=== PATIENT | female | born 1945 | race American Indian/Alaskan Native ===

== ENCOUNTER 2019-03-03 12:33 | Emergency (ER) | payer BC, MEDICARE, OTHER ==
[2019-03-03 12:48] VITALS: BP 129/49; PULSE 72
[2019-03-03 13:37] LABS: ANION GAP 10.9; CHLORIDE,CL 106 mmol/L (101-111); SODIUM,NA 140 mmol/L (135-145)
--- NOTE | 2019-03-03 14:52 | CT ---
EXAMINATION: Head wo Cont SEX: Female AGE: 73 years CLINICAL HISTORY: 73-year-old female injured in a fall. Rule out fracture or intracranial bleed. "Microvascular ischemic changes and atrophy" reported on previous CT exam of the head 06 March 2016. Scan technique: Volume acquisition of data emergency unenhanced CT scan of the head and brain obtained with patient lying supine on the Siemens multislice scanner [facility]. All data archived in the PAC system for storage, reformatting axial/sagittal/coronal planes and study (bone/brain windows). Interpretation: 1. Uniformly thick bony calvarium. Nasal septum deviated left of midline. Symmetric clear pneumatization of the paranasal and mastoid sinuses. 2. No sign of skull fracture, underlying brain contusion or epidural/subdural hematoma. 3. Generalized atrophy pattern symmetric with underlying mirror-image normal ventricular system. No hydrocephalus. 4. Multi-infarct ischemic changes as noted on previous exam to February 2016. 5. No new supratentorial or posterior fossa mass lesion. 6. No sign of acute intracerebral/intraventricular/subarachnoid bleed. CONCLUSION: No skull fracture or signs of acute closed head injury. Atrophy and chronic microvascular ischemic changes.
--- NOTE | 2019-03-03 14:53 | EDM.PDOC ---
ED HPI GENERAL MEDICAL PROBLEM - General Chief Complaint: Trauma Stated Complaint: FELL AND HIT HEAD Time Seen by Provider: 03/03/19 13:01 Source of Information: Reports: Patient, Family, RN, RN Notes Reviewed History Limitations: Reports: No Limitations - History of Present Illness INITIAL COMMENTS - FREE TEXT/NARRATIVE: patient presents to ER with complaint of falling in a chair and hitting her head. Patient is an elderly female but does take aspirin for anticoagulation, therefore trauma code was activated. Patient denies loss of consciousness. Patient states she was at work today was trying to push herself back while seated in a high chair, she and the chair both fell over backwards and she hit her head on a steel box. Patient denies blurred or double vision, N/V, dizziness. Patient denies headache at this time just states her scalp is very tender where she has the hematoma from the fall. Onset: Today, Sudden Head Pain Score (Numeric/FACES): 6 - Related Data Allergies Allergy/AdvReac Type Severity Reaction Status Date / Time No Known Allergies Allergy Verified 09/19/14 06:17 Home Meds: Home Meds Aspirin [Halfprin] 81 mg PO DAILY 09/19/14 [History] Calcium Carbonate/Vitamin D3 [Calcium 500 + Vit D 200 Caplet] 2 tab PO BID 09/19 [History] Lisinopril 5 mg PO DAILY 09/19/14 [History] Multivitamin with Minerals [Multiple Vitamin] 1 tab PO DAILY 09/19/14 [History] Simvastatin [Zocor] 5 mg PO QPM 09/19/14 [History] metFORMIN [Glucophage] 500 mg PO BID 09/19/14 [History] Past Medical History HEENT History: Reports: Impaired Vision Cardiovascular History: Reports: High Cholesterol, Hypertension Respiratory History: Reports: None Genitourinary History: Reports: None 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 Musculoskeletal History: Reports: Other (See Below) Other Musculoskeletal History: fractured left ankle Neurological History: Reports: None Psychiatric History: Reports: None Endocrine/Metabolic History: Reports: Diabetes, Type II Hematologic History: Reports: None Immunologic History: Reports: None Oncologic (Cancer) History: Reports: None Dermatologic History: Reports: None - Infectious Disease History Infectious Disease History: Reports: None - Past Surgical History Head Surgeries/Procedures: Reports: None GI Surgical History: Reports: Appendectomy, Cholecystectomy Social & Family History - Family History Family Medical History: Noncontributory - Tobacco Use Smoking Status *Q: Never Smoker Second Hand Smoke Exposure: No - Caffeine Use Caffeine Use: Reports: Coffee - Recreational Drug Use Recreational Drug Use: No Review of Systems - Review of Systems Review Of Systems: ROS reveals no pertinent complaints other than HPI. ED EXAM, GENERAL - Physical Exam Exam: See Below Exam Limited By: No Limitations General Appearance: Alert, WD/WN, No Apparent Distress Eye Exam: Bilateral Eye: EOMI, Normal Inspection, PERRL (3 brisk) Ears: Normal External Exam, Normal Canal, Hearing Grossly Normal, Normal TMs Nose: Normal Inspection Throat/Mouth: Normal Inspection, Normal Voice, No Airway Compromise Head: Other (scalp hematoma on the top of the head) Neck: Normal Inspection, Supple, Non-Tender, Full Range of Motion Respiratory/Chest: No Respiratory Distress, Lungs Clear, Normal Breath Sounds, No Accessory Muscle Use, Chest Non-Tender Cardiovascular: Normal Peripheral Pulses, Regular Rate, Rhythm, No Edema, No Gallop, No JVD, No Murmur, No Rub Peripheral Pulses: 2+: Radial (L), Radial (R) GI/Abdominal: Normal Bowel Sounds, Soft, Non-Tender (Female) Exam: Deferred Rectal (Female) Exam: Deferred Back Exam: Normal Inspection, Full Range of Motion, NT Extremities: Normal Inspection, Normal Range of Motion, Non-Tender, Normal Capillary Refill, No Pedal Edema Neurological: Alert, Oriented, CN II-XII Intact, Normal Cognition, Normal Gait, Normal Reflexes, No Motor/Sensory Deficits Psychiatric: Normal Affect, Normal Mood Skin Exam: Warm, Dry, Intact, Normal Color, No Rash Lymphatic: No Adenopathy Course - Vital Signs Last Recorded V/S: Last Vital Signs Temp 97.6 F 03/03/19 12:45 Pulse 72 03/03/19 12:45 Resp 18 03/03/19 12:45 BP 129/49 L 03/03/19 12:45 Pulse Ox 98 03/03/19 12:45 Orthostatic Blood Pressure [ 114/62 Standing] Orthostatic Blood Pressure [ 116/55 Sitting] Orthostatic Blood Pressure [ 105/44 Supine] - Orders/Labs/Meds Orders: Active Orders 24 hr Category Date Time Status EKG 12 Lead [EKG Documentation Completion] [RC] URGENT Care 03/03/19 13:08 Active Labs: Laboratory Tests 03/03/19 03/03/19 03/03/19 Range/Units 13:05 13:05 13:05 WBC 5.2 (5.0-10.0) 10^3/uL RBC 4.17 L (4.2-5.4) 10^6/uL Hgb 11.5 L (12.0-16.0) g/dL Hct 35.8 L (37.0-47.0) % MCV 85.9 (80-100) fL MCH 27.6 (27.0-34.0) pg MCHC 32.1 L (33.0-35.0) g/dL Plt Count 240 (150-450) 10^3/uL Neut % (Auto) 61.2 (42.2-75.2) % Lymph % (Auto) 31.3 (20.5-50.1) % Karnes % (Auto) 4.8 (2-8) % Eos % (Auto) 2.3 (1.0-3.0) % Baso % (Auto) 0.4 (0.0-1.0) % PT 9.3 (9.0-12.0) SEC INR 0.9 (0.9-1.2) Sodium 140 (135-145) mmol/L Potassium 3.9 (3.6-5.0) mmol/L Chloride 106 (101-111) mmol/L Carbon Dioxide 27.0 (21.0-31.0) mmol/L Anion Gap 10.9 BUN 12 (7-18) mg/dL Creatinine 0.8 (0.6-1.3) mg/dL Est Cr Clr Drug Dosing 54.08 mL/min Estimated GFR (MDRD) > 60 BUN/Creatinine Ratio 15.00 Glucose 135 H (74-105) mg/dL Calcium 9.0 (8.4-10.2) mg/dl Total Bilirubin 0.9 (0.2-1.0) mg/dL AST 21 (10-42) IU/L ALT 15 (10-60) IU/L Alkaline Phosphatase 99 (42-121) IU/L Troponin I < 0.02 (0.00-0.02) ng/ml Total Protein 6.6 L (6.7-8.2) g/dl Albumin 3.9 (3.2-5.5) g/dl Globulin 2.7 Albumin/Globulin Ratio 1.44 - Radiology Interpretation Free Text/Narrative:: head CT without contrast: No skull fracture or signs of acute closed head injury. Atrophy and chronic microvascular ischemic changes. See radiology report Departure - Departure Time of Disposition: 14:49 Disposition: Home, Self-Care 01 Condition: Fair Clinical Impression: Contusion Qualifiers: Encounter type: initial encounter Contusion area: head Contusion of head detail : scalp Qualified Code(s): S00.03XA - Contusion of scalp, initial encounter Concussion Qualifiers: Encounter type: initial encounter Loss of consciousness presence/duration: without LOC Qualified Code(s): S06.0X0A - Concussion without loss of consciousness, initial encounter - Discharge Information *PRESCRIPTION DRUG MONITORING PROGRAM REVIEWED*: No *COPY OF PRESCRIPTION DRUG MONITORING REPORT IN PATIENT EDWARD: No Instructions: Concussion, Adult, [id number], Post-Concussion Syndrome, Easy- to-Read, Head Injury, Adult, [id number] Forms: ED Department Discharge Additional Instructions: May use Tylenol and/or ibuprofen as directed for headache May use ice to the area as tolerated Rest Follow-up with your primary care provider Return to the ER if you develop nausea, vomiting, blurred or double vision, dizziness - My Orders Last 24 Hours: My Active Orders 03/03/19 13:08 EKG 12 Lead [EKG Documentation Completion] [RC] URGENT - Assessment/Plan Last 24 Hours: My Active Orders 03/03/19 13:08 EKG 12 Lead [EKG Documentation Completion] [RC] URGENT
== END 2019-03-03 15:01 | disposition home or self-care (01) ==
LOC: DL.ED 12:33
DX: S06.0X0A Concussion without loss of consciousness, initial encounter (principal); S00.03XA Contusion of scalp, initial encounter; E78.00 Pure hypercholesterolemia, unspecified; I10 Essential (primary) hypertension; E11.9 Type 2 diabetes mellitus without complications; Z79.82 Long term (current) use of aspirin; Z79.899 Other long term (current) drug therapy; Z79.84 Long term (current) use of oral hypoglycemic drugs; W07.XXXA Fall from chair, initial encounter; W22.8XXA Striking against or struck by other objects, initial encounter
CPT/HCPCS: 36415; 70450; 80053; 84484; 85025; 85610; 93005; 99284-25

== ENCOUNTER 2019-06-25 12:20 | Emergency (ER) | payer OTHER ==
--- NOTE | 2019-06-25 13:19 | CT ---
EXAMINATION: Head wo Cont SEX: Female AGE: 73 years CLINICAL HISTORY: 73-year-old female injured in fall (on aspirin) reported on recent MRI exam 01 June 2019 to have "no acute abnormality". Comparison CT of the head 03 March 2019 ("atrophy and microvascular ischemic changes"). Scan technique: Volume acquisition of data unenhanced CT scan of the head and brain obtained with patient lying supine on the Siemens multislice scanner [facility]. All data archived in the PACS system for storage, reformatting axial/sagittal/coronal planes and study (bone/brain windows). Interpretation: 1. Uniformly thick bony calvarium was symmetric clear pneumatization of the paranasal and mastoid sinuses. No sign of skull fracture, underlying brain contusion or epidural/subdural hematoma. 2. Scattered areas of decreased attenuation frontal periventricular white matter both cerebral hemispheres (right greater than left) characteristic of microvascular multi-infarct ischemic change. Hypertension? Diabetes? 3. No new supratentorial or posterior fossa mass lesion. Physiologic choroid plexus calcifications. No hydrocephalus. 4. No sign of acute intracerebral/intraventricular/subarachnoid bleed (faint basal ganglia calcifications on the left that were evident in retrospect on 03 March 2019 exam i.e. unchanged). 5. No new areas of geographic infarct or signs of encephalomalacia. CONCLUSION: Chronic microvascular ischemic changes. No new evidence intracranial mass, hydrocephalus or bleed.
[2019-06-25 13:24] LABS: SODIUM,NA 141 mmol/L (135-145)
[2019-06-25 13:25] LABS: ANION GAP 10.6; CHLORIDE,CL 108 mmol/L (101-111)
--- NOTE | 2019-06-25 13:29 | CT ---
EXAMINATION: Cervical Spine wo Cont SEX: Female AGE: 73 years CLINICAL HISTORY: 73-year-old female injured in fall. No sign of acute intracranial bleed this patient on aspirin. Scan technique: Volume acquisition of data emergency unenhanced CT scan of the cervical spine obtained with patient lying supine on the Siemens multislice scanner [place], [place]. All data archived in the PACS system for storage, reformatting axial/sagittal/coronal planes and study. INTERPRETATION: Evidence of old (chronic) trauma. 1. Mid cervical kyphosis associated with old hyperflexion compression injuries of the C5, C6, C7 and T1 vertebral bodies. (Hypertrophic buttressing marginal spur or spondylosis) 2. *No sign of prevertebral soft tissue swelling, acute cervical fracture, spondylolisthesis or jump locked facet. 3. Osteopenia. Chronic multilevel cervical disc disease. Calcification ligamentum flavum posteriorly. 4. No congenital abnormality of pathologic skeletal lesion. 5. Hemangioma and compression T1 vertebral body. No spondylolisthesis. T2 vertebral unremarkable.
--- NOTE | 2019-06-25 13:50 | EDM.PDOC ---
ED HPI GENERAL MEDICAL PROBLEM - General Source of Information: Reports: Patient <Sirena Crockett - Last Filed: 06/25/19 14:31> <JavierKailashchad - Last Filed: 06/26/19 09:04> - General Chief Complaint: Trauma Stated Complaint: FELL BACKWARD AND HIT HEAD Time Seen by Provider: 06/25/19 12:35 - History of Present Illness INITIAL COMMENTS - FREE TEXT/NARRATIVE: Alyse presented to the ED after falling backward and hitting her head. She was taking a family picture and went backwards to get a better picture and she tripped over her grandson, who was sitting behind her. She (Sirena Crockett) This incident happed about 30 minutes prior to her ER visit. Alyse admits to brief loss of consciousness and blurry after the incident. She is alert and oriented x 4 with GCS of 15 at this time. She denies any neck discomfort and was brought by private vehicle. She admits to two falls in the past couple of months where she hit her head but had no loss of consciousness and was not evaluated. Alyse denies any illicit drug use, alcohol, dizziness or lightheadedness. (Cele Herrera) - Related Data Allergies Allergy/AdvReac Type Severity Reaction Status Date / Time No Known Allergies Allergy Verified 06/25/19 12:50 Home Meds: Home Meds Aspirin [Halfprin] 81 mg PO DAILY 09/19/14 [History] Calcium Carbonate/Vitamin D3 [Calcium 500 + Vit D 200 Caplet] 2 tab PO BID 09/19 [History] Lisinopril 5 mg PO DAILY 09/19/14 [History] Multivitamin with Minerals [Multiple Vitamin] 1 tab PO DAILY 09/19/14 [History] Simvastatin [Zocor] 5 mg PO QPM 09/19/14 [History] metFORMIN [Glucophage] 500 mg PO BID 09/19/14 [History] Past Medical History HEENT History: Reports: Impaired Vision Cardiovascular History: Reports: High Cholesterol, Hypertension Respiratory History: Reports: None Genitourinary History: Reports: None 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 Musculoskeletal History: Reports: Other (See Below) Other Musculoskeletal History: fractured left ankle Neurological History: Reports: None Psychiatric History: Reports: None Endocrine/Metabolic History: Reports: Diabetes, Type II Hematologic History: Reports: None Immunologic History: Reports: None Oncologic (Cancer) History: Reports: None Dermatologic History: Reports: None - Infectious Disease History Infectious Disease History: Reports: None - Past Surgical History Head Surgeries/Procedures: Reports: None GI Surgical History: Reports: Appendectomy, Cholecystectomy <Sirena Crockett - Last Filed: 06/25/19 14:31> Social & Family History - Family History Family Medical History: Noncontributory - Caffeine Use Caffeine Use: Reports: Coffee <Sirena Crockett - Last Filed: 06/25/19 14:31> Review of Systems - Review of Systems Review Of Systems: See Below <Sirena Crockett - Last Filed: 06/25/19 14:31> ED EXAM, GENERAL - Physical Exam Exam: See Below Exam Limited By: No Limitations General Appearance: Alert, WD/WN, No Apparent Distress Eye Exam: Bilateral Eye: Normal Inspection, PERRL Ears: Normal External Exam, Normal Canal, Normal TMs Ear Exam: Bilateral Ear: Auricle Normal, Canal Normal, TM normal Nose: Normal Inspection, Normal Mucosa, No Blood Throat/Mouth: Normal Inspection, Normal Lips, Normal Teeth, Normal Oropharynx, Normal Voice Neck: Normal Inspection, Supple Respiratory/Chest: No Respiratory Distress, Lungs Clear, Normal Breath Sounds, No Accessory Muscle Use, Chest Non-Tender Cardiovascular: Normal Peripheral Pulses, Regular Rate, Rhythm, No Edema, No Murmur GI/Abdominal: Normal Bowel Sounds, Soft, Non-Tender, No Organomegaly, No Distention Extremities: Normal Inspection, Normal Range of Motion, Normal Capillary Refill Neurological: Alert, Oriented, CN II-XII Intact, Normal Cognition, Normal Gait, Normal Reflexes, No Motor/Sensory Deficits Psychiatric: Normal Affect, Normal Mood Skin Exam: Warm, Dry, Intact, Normal Color, No Rash <Sirena Crockett - Last Filed: 06/25/19 14:31> - Physical Exam Eye Exam: Bilateral Eye: EOMI Head: Other (no swelling noted on inspection and palpation but patient reports mild tenderness with palpation of the occiput region.) Peripheral Pulses: 3+: Radial (L), Radial (R), Posterior Tibial (L), Posterior Tibial (R) <Cele Herrera - Last Filed: 06/26/19 09:04> - Orders/Labs/Meds Labs: Laboratory Tests 06/25/19 06/25/19 Range/Units 12:33 12:33 WBC 4.7 L (5.0-10.0) 10^3/uL RBC 3.91 L (4.2-5.4) 10^6/uL Hgb 10.9 L (12.0-16.0) g/dL Hct 33.6 L (37.0-47.0) % MCV 85.9 (80-100) fL MCH 27.9 (27.0-34.0) pg MCHC 32.4 L (33.0-35.0) g/dL Plt Count 246 (150-450) 10^3/uL Neut % (Auto) 51.7 (42.2-75.2) % Lymph % (Auto) 40.4 (20.5-50.1) % Ware % (Auto) 4.7 (2-8) % Eos % (Auto) 2.8 (1.0-3.0) % Baso % (Auto) 0.4 (0.0-1.0) % Sodium 141 (135-145) mmol/L Potassium 3.6 (3.6-5.0) mmol/L Chloride 108 (101-111) mmol/L Carbon Dioxide 26.0 (21.0-31.0) mmol/L Anion Gap 10.6 BUN 11 (7-18) mg/dL Creatinine 0.7 (0.6-1.3) mg/dL Est Cr Clr Drug Dosing TNP Estimated GFR (MDRD) > 60 BUN/Creatinine Ratio 15.71 Glucose 132 H (74-105) mg/dL Calcium 9.0 (8.4-10.2) mg/dl Total Bilirubin 0.8 (0.2-1.0) mg/dL AST 21 (10-42) IU/L ALT 17 (10-60) IU/L Alkaline Phosphatase 107 (42-121) IU/L Total Protein 6.9 (6.7-8.2) g/dl Albumin 4.1 (3.2-5.5) g/dl Globulin 2.8 Albumin/Globulin Ratio 1.46 - Radiology Interpretation Free Text/Narrative:: no acute bleeding (Sirena Crockett) - Re-Assessments/Exams Free Text/Narrative Re-Assessment/Exam: CT results and labs were reviewed with patient. She continued to have normal neuro exams. GCS 15 on admission and at 1 hour recheck. 02/16/20 14:34 (Sirena Crockett) Departure - Departure Time of Disposition: 14:39 Condition: Good - Discharge Information *PRESCRIPTION DRUG MONITORING PROGRAM REVIEWED*: Not Applicable *COPY OF PRESCRIPTION DRUG MONITORING REPORT IN PATIENT EDWARD: Not Applicable <Sirena Crockett - Last Filed: 06/25/19 14:31> <JavierCele - Last Filed: 06/26/19 09:04> - Departure Disposition: Home, Self-Care 01 Clinical Impression: Concussion with brief (less than one hour) loss of consciousness - Discharge Information Instructions: Head Injury, Adult Forms: ED Department Discharge Additional Instructions: We reviewed the warning signs and symptoms that would prompt immediate medical evaluation with follow up MRI. Family will be with her to monitor for symptoms. She can use tylenol as needed for headache. Follow up with repeat lab work in 1 week with primary doctor (this is already scheduled). Sepsis Event Note - Focused Exam Date Exam was Performed: 06/25/19 Time Exam was Performed: 14:31 <Sirena Crockett - Last Filed: 06/25/19 14:31>
== END 2019-06-25 14:49 | disposition home or self-care (01) ==
LOC: DL.ED 12:20
DX: S06.0X9A Concussion with loss of consciousness of unspecified duration, initial encounter (principal); E78.00 Pure hypercholesterolemia, unspecified; I10 Essential (primary) hypertension; E11.9 Type 2 diabetes mellitus without complications; Z79.82 Long term (current) use of aspirin; Z79.899 Other long term (current) drug therapy; Z79.84 Long term (current) use of oral hypoglycemic drugs; W01.0XXA Fall on same level from slipping, tripping and stumbling without subsequent striking against object, initial encounter; Y93.89 Activity, other specified
CPT/HCPCS: 36415; 70450; 72125; 80053; 85025; 99284-25

== ENCOUNTER 2020-04-07 12:28 | Emergency (ER) | payer MEDICARE, OTHER ==
[2020-04-07 13:02] VITALS: BP 151/69; PULSE 82
[2020-04-07] MEDS ORDERED: Sodium Chloride 0.9% 10 ML Syringe FLUSH PRN (13:42)
[2020-04-07] MEDS ORDERED: Ketorolac 30 MG/ML SDV IVPUSH ONE (13:42)
--- NOTE | 2020-04-07 13:47 | EDM.PDOC ---
ED HPI GENERAL MEDICAL PROBLEM - General Chief Complaint: Chest Pain Stated Complaint: chest pain shoulder burn Time Seen by Provider: 04/07/20 13:40 Source of Information: Reports: Patient History Limitations: Reports: No Limitations - History of Present Illness INITIAL COMMENTS - FREE TEXT/NARRATIVE: Patient is here for chest pain. It has been going on, off and on, since february. She has been seen out at [facility] and had an xray and mammogram done last week, which were normal. The pain comes on when active or resting. Nothing makes it better. The pain will radiate around to her back, but not up her jaw or down her arm. She denies any nausea or vomiting. Left Chest Pain Score (Numeric/FACES): 4 - Related Data Allergies Allergy/AdvReac Type Severity Reaction Status Date / Time No Known Allergies Allergy Verified 04/07/20 12:35 Home Meds: Home Meds Aspirin [Halfprin] 81 mg PO DAILY 09/19/14 [History] Calcium Carbonate/Vitamin D3 [Calcium 500 + Vit D 200 Caplet] 2 tab PO BID 09/19/14 [History] Lisinopril 5 mg PO DAILY 09/19/14 [History] Multivitamin with Minerals [Multiple Vitamin] 1 tab PO DAILY 09/19/14 [History] Simvastatin [Zocor] 5 mg PO QPM 09/19/14 [History] metFORMIN [Glucophage] 500 mg PO BID 09/19/14 [History] Past Medical History HEENT History: Reports: Impaired Vision Cardiovascular History: Reports: High Cholesterol, Hypertension Respiratory History: Reports: None Genitourinary History: Reports: None 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 DISPATCHER History: Reports: None Musculoskeletal History: Reports: Other (See Below) Other Musculoskeletal History: fractured left ankle Neurological History: Reports: None Psychiatric History: Reports: None Endocrine/Metabolic History: Reports: Diabetes, Type II Hematologic History: Reports: None Immunologic History: Reports: None Oncologic (Cancer) History: Reports: None Dermatologic History: Reports: None - Infectious Disease History Infectious Disease History: Reports: None - Past Surgical History Head Surgeries/Procedures: Reports: None GI Surgical History: Reports: Appendectomy, Cholecystectomy Social & Family History - Family History Family Medical History: No Pertinent Family History - Tobacco Use Tobacco Use Status *Q: Never Tobacco User Second Hand Smoke Exposure: No - Caffeine Use Caffeine Use: Reports: Coffee - Recreational Drug Use Recreational Drug Use: No ED ROS GENERAL - Review of Systems Review Of Systems: Comprehensive ROS is negative, except as noted in HPI. ED EXAM, GENERAL - Physical Exam Exam: See Below Exam Limited By: No Limitations General Appearance: Alert, WD/WN, No Apparent Distress Eye Exam: Bilateral Eye: Normal Inspection Ears: Normal External Exam Head: Atraumatic, Normocephalic Neck: Normal Inspection, Supple Respiratory/Chest: No Respiratory Distress, Lungs Clear, Normal Breath Sounds, No Accessory Muscle Use, Chest Non-Tender Cardiovascular: Normal Peripheral Pulses, Regular Rate, Rhythm, No Edema, No Murmur GI/Abdominal: Soft, Non-Tender, No Distention. No: Guarding, Rebound (Female) Exam: Deferred Rectal (Female) Exam: Deferred Back Exam: Normal Inspection, Full Range of Motion, NT Extremities: Normal Inspection, Normal Range of Motion, No Pedal Edema Neurological: Alert, Oriented, CN II-XII Intact, Normal Cognition, Normal Gait, Normal Reflexes, No Motor/Sensory Deficits Psychiatric: Normal Affect, Normal Mood Skin Exam: Warm, Dry, Intact, Normal Color, No Rash Lymphatic: No Adenopathy Course - Vital Signs Last Recorded V/S: Last Vital Signs Temp 97.3 F 04/07/20 12:32 Pulse 82 04/07/20 12:32 Resp 18 04/07/20 12:32 BP 151/69 H 04/07/20 12:32 Pulse Ox 99 04/07/20 12:32 - Orders/Labs/Meds Orders: Active Orders 24 hr Category Date Time Status EKG 12 Lead [EKG Documentation Completion] [RC] URGENT Care 04/07/20 12:46 Active Peripheral IV Care [RC] . DIRECTED Care 04/07/20 13:42 Ordered Sodium Chloride 0.9% [Saline Flush] Med 04/07/20 13:42 Ordered 10 ml FLUSH ASDIRECTED PRN Peripheral IV Insertion Adult [OM.PC] Stat Oth 04/07/20 13:42 Ordered Medication Orders Sodium Chloride (Saline Flush) 10 ml FLUSH ASDIRECTED PRN PRN Reason: Keep Vein Open Last Admin: 04/07/20 13:49 Dose: 10 ml Documented by: Labs: Laboratory Tests 04/07/20 04/07/20 Range/Units 12:43 12:43 WBC 5.4 (5.0-10.0) 10^3/uL RBC 4.33 (4.2-5.4) 10^6/uL Hgb 12.2 (12.0-16.0) g/dL Hct 37.3 (37.0-47.0) % MCV 86.1 (80-100) fL MCH 28.2 (27.0-34.0) pg MCHC 32.7 L (33.0-35.0) g/dL Plt Count 270 (150-450) 10^3/uL Neut % (Auto) 55.1 (42.2-75.2) % Lymph % (Auto) 38.9 (20.5-50.1) % [place] % (Auto) 4.1 (2-8) % Eos % (Auto) 1.5 (1.0-3.0) % Baso % (Auto) 0.4 (0.0-1.0) % Sodium 140 (136-145) mmol/L Potassium 3.9 (3.5-5.1) mmol/L Chloride 104 (98-107) mmol/L Carbon Dioxide 27 (21-32) mmol/L Anion Gap 12.9 (7-13) mEq/L BUN 9 (7-18) mg/dL Creatinine 0.84 (0.55-1.02) mg/dL Est Cr Clr Drug Dosing 50.74 mL/min Estimated GFR (MDRD) > 60 BUN/Creatinine Ratio 10.7 (No establ ref range) Glucose 104 H (74-99) mg/dL Calcium 9.5 (8.5-10.1) mg/dL Total Bilirubin 1.0 (0.2-1.0) mg/dL AST 15 (15-37) U/L ALT 21 (14-59) U/L Alkaline Phosphatase 129 H (46-116) U/L Troponin I < 0.017 (0.000-0.056) ng/mL Total Protein 7.3 (6.4-8.2) g/dL Albumin 4.0 (3.4-5.0) g/dL Globulin 3.3 Albumin/Globulin Ratio 1.2 Meds: Medications Generic Name Dose Route Start Last Admin Trade Name Freq PRN Reason Stop Dose Admin Sodium Chloride 10 ml 04/07/20 13:42 04/07/20 13:49 Saline Flush FLUSH 10 ml ASDIRECTED PRN Administration Keep Vein Open Discontinued Medications Generic Name Dose Route Start Last Admin Trade Name Jonq PRN Reason Stop Dose Admin Ketorolac Tromethamine 30 mg 04/07/20 13:42 04/07/20 13:49 Toradol IVPUSH 04/07/20 13:43 30 mg ONETIME ONE Administration Departure - Departure Time of Disposition: 15:00 Disposition: Home, Self-Care 01 Condition: Good Clinical Impression: Atypical chest pain Forms: ED Department Discharge Additional Instructions: Toradol every 6 hours as needed for pain. Do not take ibuprofen or aleve while taking this medication May take Tylenol Follow up with primary care provider in 3-5 days Sepsis Event Note (ED) - Evaluation Sepsis Screening Result: No Definite Risk - Focused Exam Vital Signs: Vital Signs Temp Pulse Resp BP Pulse Ox 04/07/20 12:32 97.3 F 82 18 151/69 H 99 - My Orders Last 24 Hours: My Active Orders 04/07/20 12:46 EKG 12 Lead [EKG Documentation Completion] [RC] URGENT 04/07/20 13:42 Peripheral IV Care [RC] . DIRECTED Sodium Chloride 0.9% [Saline Flush] 10 ml FLUSH ASDIRECTED PRN Peripheral IV Insertion Adult [OM.PC] Stat - Assessment/Plan Last 24 Hours: My Active Orders 04/07/20 12:46 EKG 12 Lead [EKG Documentation Completion] [RC] URGENT 04/07/20 13:42 Peripheral IV Care [RC] . DIRECTED Sodium Chloride 0.9% [Saline Flush] 10 ml FLUSH ASDIRECTED PRN Peripheral IV Insertion Adult [OM.PC] Stat
[2020-04-07 14:05] LABS: ANION GAP 12.9 mEq/L (7-13); CHLORIDE,CL 104 mmol/L (98-107); SODIUM,NA 140 mmol/L (136-145)
== END 2020-04-07 15:11 | disposition home or self-care (01) ==
LOC: DL.ED 12:28
DX: R07.89 Other chest pain (principal); I10 Essential (primary) hypertension; E78.00 Pure hypercholesterolemia, unspecified; E11.9 Type 2 diabetes mellitus without complications; Z90.49 Acquired absence of other specified parts of digestive tract; Z79.82 Long term (current) use of aspirin; Z79.84 Long term (current) use of oral hypoglycemic drugs; Z79.899 Other long term (current) drug therapy
CPT/HCPCS: 36415; 80053; 84484; 85025; 93005; 96374; 99285-25; J1885

== ENCOUNTER 2021-05-19 04:35 | Emergency (ER) | payer OTHER ==
[2021-05-19 06:17] LABS: CHLORIDE,CL 99 mmol/L (98-107); SODIUM,NA 136 mmol/L (136-145)
[2021-05-19 06:24] LABS: CORONAVIRUS COVID-19 NAA NEGATIVE (NEGATIVE)
--- NOTE | 2021-05-19 06:27 | EDM.PDOC ---
ED HPI GENERAL MEDICAL PROBLEM - General Stated Complaint: BURNING PAIN IN URINE/BLOOD Time Seen by Provider: 05/19/21 06:20 Source of Information: Reports: Patient History Limitations: Reports: No Limitations - History of Present Illness INITIAL COMMENTS - FREE TEXT/NARRATIVE: This 75 yo female patient reports to the ED with burning with urination and bloody urine. The patient reports she noticed the symptoms at about 0200 this morning and symptoms had continued to get worse. The patient reports she has also had increased cough over the past 4 days that has gotten better today. The patient reports she has had a UTI in the past, but it was a long time ago. Onset: Today Duration: Constant, Getting Worse Location: Reports: Pelvis Quality: Reports: Other Severity: Moderate Improves with: Reports: None Worsens with: Reports: None Context: Reports: Other Associated Symptoms: Reports: No Other Symptoms Pelvic Pain Score (Numeric/FACES): 8 - Related Data Allergies Allergy/AdvReac Type Severity Reaction Status Date / Time No Known Allergies Allergy Verified 05/19/21 06:16 Home Meds: Home Meds Aspirin [Halfprin] 81 mg PO DAILY 09/19/14 [History] Calcium Carbonate/Vitamin D3 [Calcium 500 + Vit D 200 Caplet] 2 tab PO BID 09/19/14 [History] Lisinopril 5 mg PO DAILY 09/19/14 [History] Multivitamin with Minerals [Multiple Vitamin] 1 tab PO DAILY 09/19/14 [History] metFORMIN [Glucophage] 500 mg PO BID 09/19/14 [History] atorvaSTATin [Lipitor] 20 mg PO BEDTIME 04/24/20 [History] Past Medical History HEENT History: Reports: Impaired Vision Cardiovascular History: Reports: High Cholesterol, Hypertension Respiratory History: Reports: None Genitourinary History: Reports: None MANAGER FILM History: Reports: None Musculoskeletal History: Reports: Other (See Below) Other Musculoskeletal History: fractured left ankle Neurological History: Reports: None Psychiatric History: Reports: None Endocrine/Metabolic History: Reports: Diabetes, Type II Hematologic History: Reports: None Immunologic History: Reports: None Oncologic (Cancer) History: Reports: None Dermatologic History: Reports: None - Infectious Disease History Infectious Disease History: Reports: None - Past Surgical History Head Surgeries/Procedures: Reports: None GI Surgical History: Reports: Appendectomy, Cholecystectomy Social & Family History - Family History Family Medical History: No Pertinent Family History - Caffeine Use Caffeine Use: Reports: Coffee ED ROS GENERAL - Review of Systems Review Of Systems: Comprehensive ROS is negative, except as noted in HPI. ED EXAM, RENAL/ - Physical Exam Exam: See Below Exam Limited By: No Limitations General Appearance: Alert, WD/WN, No Apparent Distress Eye Exam: Bilateral Eye: EOMI, Normal Inspection, PERRL Ears: Normal External Exam, Normal Canal, Hearing Grossly Normal, Normal TMs Nose: Normal Inspection, Normal Mucosa, No Blood Throat/Mouth: Normal Inspection, Normal Lips, Normal Teeth, Normal Gums, Normal Oropharynx, Normal Voice, No Airway Compromise Head: Atraumatic, Normocephalic Neck: Normal Inspection, Supple, Non-Tender, Full Range of Motion Respiratory/Chest: No Respiratory Distress, Lungs Clear, Normal Breath Sounds, No Accessory Muscle Use, Chest Non-Tender Cardiovascular: Normal Peripheral Pulses, Regular Rate, Rhythm, No Edema, No Gallop, No JVD, No Murmur, No Rub GI/Abdominal: Normal Bowel Sounds, Soft, Non-Tender, No Organomegaly, No Distention, No Abnormal Bruit, No Mass (Female) Exam: Deferred Rectal (Female) Exam: Deferred Back Exam: Normal Inspection, Full Range of Motion, NT Extremities: Normal Inspection, Normal Range of Motion, Non-Tender, Normal Capillary Refill, No Pedal Edema Neurological: Alert, Oriented, CN II-XII Intact, Normal Cognition, Normal Gait, Normal Reflexes, No Motor/Sensory Deficits Psychiatric: Normal Affect, Normal Mood Skin Exam: Warm, Dry, Intact, Normal Color, No Rash Lymphatic: No Adenopathy Course - Vital Signs Last Recorded V/S: Last Vital Signs Temp 99.1 F 05/19/21 05:47 Pulse 98 05/19/21 05:47 Resp 22 H 05/19/21 05:47 BP 158/92 H 05/19/21 05:47 Pulse Ox 97 05/19/21 05:47 - Orders/Labs/Meds Orders: Active Orders 24 hr Category Date Time Status CULTURE URINE [RM] Urgent Lab 05/19/21 06:05 Received UA W/MICROSCOPIC [URIN] Urgent Lab 05/19/21 06:05 Results Sodium Chloride 0.9% [Normal Saline] 1,000 ml Med 05/19/21 06:30 Ordered IV .BOLUS Medication Orders Sodium Chloride (Normal Saline) 1,000 mls @ 999 mls/hr IV .BOLUS ONE Stop: 05/19/21 07:30 Labs: Laboratory Tests 05/19/21 05/19/21 05/19/21 Range/Units 05:45 05:55 05:55 WBC 10.8 H (5.0-10.0) 10^3/uL RBC 3.98 L (4.2-5.4) 10^6/uL Hgb 10.9 L (12.0-16.0) g/dL Hct 34.4 L (37.0-47.0) % MCV 86.4 (80-100) fL MCH 27.4 (27.0-34.0) pg MCHC 31.7 L (33.0-35.0) g/dL Plt Count 344 (150-450) 10^3/uL Neut % (Auto) 79.0 H (42.2-75.2) % Lymph % (Auto) 15.9 L (20.5-50.1) % [place] % (Auto) 3.5 (2-8) % Eos % (Auto) 1.4 (1.0-3.0) % Baso % (Auto) 0.2 (0.0-1.0) % Sodium 136 (136-145) mmol/L Potassium 4.0 (3.5-5.1) mmol/L Chloride 99 (98-107) mmol/L Carbon Dioxide 26 (21-32) mmol/L Anion Gap 15.0 H (7-13) mEq/L BUN 10 (7-18) mg/dL Creatinine 0.81 (0.55-1.02) mg/dL Est Cr Clr Drug Dosing 51.82 mL/min Estimated GFR (MDRD) > 60 BUN/Creatinine Ratio 12.3 (No establ ref range) Glucose 131 H (70-99) mg/dL Calcium 9.0 (8.5-10.1) mg/dL Total Bilirubin 0.6 (0.2-1.0) mg/dL AST 16 (15-37) U/L ALT 23 (14-59) U/L Alkaline Phosphatase 126 H (46-116) U/L Total Protein 7.3 (6.4-8.2) g/dL Albumin 3.7 (3.4-5.0) g/dL Globulin 3.6 Albumin/Globulin Ratio 1.0 Urine Color (YELLOW) Urine Appearance (CLEAR) Urine pH (5.0-9.0) Ur Specific Cranks (1.005-1.030) Urine Protein (NEGATIVE) Urine Glucose (UA) (NEGATIVE) Urine Ketones (NEGATIVE) Urine Occult Blood (NEGATIVE) Urine Nitrite (NEGATIVE) Urine Bilirubin (NEGATIVE) Urine Urobilinogen (0.2-1.0) mg/dL Ur Leukocyte Esterase (NEGATIVE) Influenza Type A RNA Negative (NEGATIVE) Influenza Type B RNA Negative (NEGATIVE) SARS-CoV-2 RNA (ADEN) Negative (NEGATIVE) 05/19/21 Range/Units 06:05 WBC (5.0-10.0) 10^3/uL RBC (4.2-5.4) 10^6/uL Hgb (12.0-16.0) g/dL Hct (37.0-47.0) % MCV (80-100) fL MCH (27.0-34.0) pg MCHC (33.0-35.0) g/dL Plt Count (150-450) 10^3/uL Neut % (Auto) (42.2-75.2) % Lymph % (Auto) (20.5-50.1) % [place] % (Auto) (2-8) % Eos % (Auto) (1.0-3.0) % Baso % (Auto) (0.0-1.0) % Sodium (136-145) mmol/L Potassium (3.5-5.1) mmol/L Chloride (98-107) mmol/L Carbon Dioxide (21-32) mmol/L Anion Gap (7-13) mEq/L BUN (7-18) mg/dL Creatinine (0.55-1.02) mg/dL Est Cr Clr Drug Dosing mL/min Estimated GFR (MDRD) BUN/Creatinine Ratio (No establ ref range) Glucose (70-99) mg/dL Calcium (8.5-10.1) mg/dL Total Bilirubin (0.2-1.0) mg/dL AST (15-37) U/L ALT (14-59) U/L Alkaline Phosphatase (46-116) U/L Total Protein (6.4-8.2) g/dL Albumin (3.4-5.0) g/dL Globulin Albumin/Globulin Ratio Urine Color Red (YELLOW) Urine Appearance Turbid (CLEAR) Urine pH 8.5 (5.0-9.0) Ur Specific Cranks 1.015 (1.005-1.030) Urine Protein >=300 H (NEGATIVE) Urine Glucose (UA) 100 H (NEGATIVE) Urine Ketones 40 H (NEGATIVE) Urine Occult Blood Large H (NEGATIVE) Urine Nitrite Positive H (NEGATIVE) Urine Bilirubin Large H (NEGATIVE) Urine Urobilinogen 1.0 (0.2-1.0) mg/dL Ur Leukocyte Esterase Large H (NEGATIVE) Influenza Type A RNA (NEGATIVE) Influenza Type B RNA (NEGATIVE) SARS-CoV-2 RNA (ADEN) (NEGATIVE) Meds: Medications Generic Name Dose Route Start Last Admin Trade Name Freq PRN Reason Stop Dose Admin Sodium Chloride 1,000 mls @ 999 mls/hr 05/19/21 06:30 Normal Saline IV 05/19/21 07:30 .BOLUS ONE Discontinued Medications Generic Name Dose Route Start Last Admin Trade Name Freq PRN Reason Stop Dose Admin Ciprofloxacin 500 mg 05/19/21 06:32 Ciprofloxacin 500 Mg Tab PO 05/19/21 06:33 ONETIME ONE Phenazopyridine HCl 190 mg 05/19/21 06:32 Phenazopyridine 95 Mg Tab PO 05/19/21 06:33 ONETIME ONE Departure - Departure Time of Disposition: 06:37 Disposition: Home, Self-Care 01 Condition: Fair Clinical Impression: UTI, Urinary tract infectious disease - Discharge Information *PRESCRIPTION DRUG MONITORING PROGRAM REVIEWED*: Not Applicable *COPY OF PRESCRIPTION DRUG MONITORING REPORT IN PATIENT EDWARD: Not Applicable Instructions: Urinary Tract Infection, Adult, [id number] Forms: ED Department Discharge Care Plan Goals: The patient was advised of the examination and lab results during the visit. The patient was given an oral dose of Cipro, an oral dose of Pyridium and a liter of IV fluids while in the emergency department. The patient was discharged with a script for Cipro (500 mg) #10 to take 1 by mouth 2 times per day for 5 days and Pyridium (200 mg) #6 to take 1 by mouth 3 times per day for 2 days. The patient was encouraged to increase her oral fluid intake. If the patient has any additional symptoms or concerns, the patient should either return to the emergency department or visit her primary care facility. Sepsis Event Note (ED) - Focused Exam Vital Signs: Vital Signs Temp Pulse Resp BP Pulse Ox 05/19/21 05:47 99.1 F 98 22 H 158/92 H 97 - My Orders Last 24 Hours: My Active Orders 05/19/21 06:05 CULTURE URINE [RM] Urgent UA W/MICROSCOPIC [URIN] Urgent 05/19/21 06:30 Sodium Chloride 0.9% [Normal Saline] 1,000 ml IV .BOLUS - Assessment/Plan Last 24 Hours: My Active Orders 05/19/21 06:05 CULTURE URINE [RM] Urgent UA W/MICROSCOPIC [URIN] Urgent 05/19/21 06:30 Sodium Chloride 0.9% [Normal Saline] 1,000 ml IV .BOLUS
[2021-05-19] MEDS ORDERED: Sodium Chloride 0.9% 1,000 ML IV ONE (06:30)
[2021-05-19] MEDS ORDERED: Phenazopyridine 95 MG Tab PO ONE (06:32)
[2021-05-19] MEDS ORDERED: Ciprofloxacin 500 MG Tab PO ONE (06:32)
[2021-05-19 07:00] VITALS: BP 118/58; PULSE 94
== END 2021-05-19 07:51 | disposition home or self-care (01) ==
LOC: DL.ED 04:35
DX: N39.0 Urinary tract infection, site not specified (principal); E78.00 Pure hypercholesterolemia, unspecified; I10 Essential (primary) hypertension; E11.9 Type 2 diabetes mellitus without complications; Z79.2 Long term (current) use of antibiotics; Z79.84 Long term (current) use of oral hypoglycemic drugs; Z79.899 Other long term (current) drug therapy; Z20.822 Contact with and (suspected) exposure to COVID-19
CPT/HCPCS: 0240U; 36415; 80053; 81001; 85025; 87086; 87088; 87186; 99283; A9270; J7030

== ENCOUNTER 2021-11-26 07:14 | Day surgery (SDC) | payer OTHER ==
[2021-11-26] MEDS ORDERED: Sodium Chloride 0.9% 10 ML Syringe IV ONE (07:15)
[2021-11-26] MEDS ORDERED: Midazolam 1 MG/ML 2 ML SDV IV ONE (07:15)
[2021-11-26] MEDS ORDERED: Dexamethasone 4 MG/ML SDV IV ONE (07:15)
[2021-11-26] MEDS ORDERED: Tobramycin 0.3% Ophth Drops 5 ML Bottle EYELF SCH (07:30)
[2021-11-26] MEDS ORDERED: Tropicamide 1% Ophth Soln 15 ML Bottle EYELF ONE (07:30)
[2021-11-26] MEDS ORDERED: Moxifloxacin 0.5% Ophth Soln 3 ML Bottle EYELF ONE (07:30)
[2021-11-26] MEDS ORDERED: Timolol Maleate 0.5% Ophth Soln 5 ML Bottle EYELF ONE (07:30)
[2021-11-26] MEDS ORDERED: Ondansetron 4 MG/2 ML SDV IVPUSH PRN (07:30)
[2021-11-26] MEDS ORDERED: Cataract Ophth Solution EYELF ONE (07:30)
[2021-11-26] MEDS ORDERED: Phenylephrine 10% Ophth Soln 5 ML Bot EYELF ONE (07:30)
[2021-11-26] MEDS ORDERED: Povidone-Iodine 5% Sterile Ophth Soln 30 ML Bottle EYELF ONE ×2 (07:30→08:48)
[2021-11-26] MEDS ORDERED: Proparacaine 0.5% Ophth Soln 15 ML Bottle EYELF ONE (07:30)
[2021-11-26] MEDS ORDERED: Sodium Chloride 0.9% 10 ML Syringe FLUSH PRN (07:30)
[2021-11-26] MEDS ORDERED: Acetaminophen 325 MG Tab PO PRN (07:30)
[2021-11-26] MEDS ORDERED: Acetaminophen/Codeine 300-30 MG Tab PO PRN (07:30)
[2021-11-26] MEDS ORDERED: Tetracaine HCl/PF 0.5% 4 ML Bottle EYELF ONE (08:48)
[2021-11-26] MEDS ORDERED: Diclofenac Sodium 0.1% Ophth Soln 5 ML Bottle EYELF ONE (08:49)
[2021-11-26] MEDS ORDERED: Apraclonidine 0.5% Ophth Soln 5 ML Bot EYELF ONE (08:49)
[2021-11-26] MEDS ORDERED: Balanced Salt Solution Ophth Irrig 500 ML Bottle IOCULAR ONE (08:50)
[2021-11-26] MEDS ORDERED: Dexamethasone/Neomycin/Polymyxin B Ophth Oint 3.5 GM Tube EYELF ONE (08:50)
[2021-11-26] MEDS ORDERED: Lidocaine 1% 5 ML VIAL ONE (08:50)
[2021-11-26] MEDS ORDERED: Vancomycin 500 MG SDV EYELF ONE (08:51)
[2021-11-26] MEDS ORDERED: Chondroitin Sulfate/Hyaluronate Sodium Ophth Inj 0.75 ML Syringe EYELF ONE (08:52)
[2021-11-26 09:34] VITALS: BP 113/53; PULSE 61
== END 2021-11-26 10:02 | disposition home or self-care (01) ==
LOC: DL.SDS 07:14
PROVIDERS: ATTEND Ophthalmology
DX: E11.36 Type 2 diabetes mellitus with diabetic cataract (principal); H25.812 Combined forms of age-related cataract, left eye; H52.02 Hypermetropia, left eye; H52.4 Presbyopia; H52.223 Regular astigmatism, bilateral; H43.813 Vitreous degeneration, bilateral; E78.5 Hyperlipidemia, unspecified; I10 Essential (primary) hypertension; F17.220 Nicotine dependence, chewing tobacco, uncomplicated; Z79.899 Other long term (current) drug therapy; Z01.812 Encounter for preprocedural laboratory examination; Z20.822 Contact with and (suspected) exposure to COVID-19
CPT/HCPCS: 00142; 66982; 87635; A9270; J1100; J2250; J3370; J3490; V2632; U0002

== ENCOUNTER 2024-04-16 18:32 | Emergency (ER) | payer OTHER ==
[2024-04-16 19:11] VITALS: BP 116/61; PULSE 122
[2024-04-16 19:22] LABS: APPEARANCE,URINE CLOUDY (CLEAR); BILIRUBIN,URINE NEGATIVE (NEGATIVE); COLOR,URINE YELLOW (YELLOW); GLUCOSE,URINE NEGATIVE (NEGATIVE); KETONES,URINE TRACE (NEGATIVE); LEUKOCYTE ESTERASE,URINE LARGE (NEGATIVE); NITRITE,URINE NEGATIVE (NEGATIVE); OCCULT BLOOD,URINE LARGE (NEGATIVE); PROTEIN,URINE 30 (NEGATIVE); UROBILINOGEN,URINE 0.2 mg/dL (0.2-1.0)
[2024-04-16 19:38] LABS: BACTERIA,URINE FEW /HPF (0-FEW/HPF); EPITHELIAL CELLS,URINE FEW /HPF (NOT SEEN); WBC,URINE 20-30 /HPF (0-5/HPF)
[2024-04-16 19:39] LABS: CALCIUM OXALATE CRYSTALS,URINE FEW /HPF (NOT SEEN)
[2024-04-16] MEDS: cefTRIAXone 1 GM, Lidocaine 1% 2.1 ML IM ONE (19:53)
== END 2024-04-16 19:55 | disposition home or self-care (01) ==
LOC: DL.ED 18:32
DX: N39.0 Urinary tract infection, site not specified (principal); E86.9 Volume depletion, unspecified; I10 Essential (primary) hypertension; E11.9 Type 2 diabetes mellitus without complications; E78.00 Pure hypercholesterolemia, unspecified; Z86.16 Personal history of COVID-19; Z90.49 Acquired absence of other specified parts of digestive tract; Z79.82 Long term (current) use of aspirin; Z79.899 Other long term (current) drug therapy
CPT/HCPCS: 81001; 87086; 96372; 99283; J0696; 99284; J3490